=== PATIENT | female | born 1940 | race Two or more races ===

== ENCOUNTER 2025-01-12 16:03 | Inpatient (IN) | payer MEDICARE, MEDICAID ==
[~2025-01-12] VITALS: Ht 152.4 cm; Wt 81.6 kg
[~2025-01-12 16:03] MED LIST: ASPI-1450 PO; ATOR40TA71 PO; CLOP75TA83 PO; FLUD.1 PO; GABA-1181 PO; INSU3INS3 SQ; METF-446 PO; SIMV-46 PO
[2025-01-12] MEDS: SODIUM CHLORIDE 0.9% 500 ML IV ONE (17:28)
[2025-01-12 17:41] LABS: PLATELET COUNT (AUTO) 225 K/uL (150-450); RED BLOOD CELL COUNT(AUTO) 3.98 MIL/uL (4.00-5.20); RED CELL DISTRIBUTION WIDTH 15.4 % (11.5-14.5); WHITE BLOOD COUNT (AUTO) 6.0 K/uL (4.5-11.0)
[2025-01-12 17:43] LABS: APPEARANCE,URINE CLEAR (CLEAR); GLUCOSE, URINE (UA) NEGATIVE (NEGATIVE); LEUKOCYTE ESTERASE ,URINE MODERATE (NEGATIVE); NITRATE,URINE POSITIVE (NEGATIVE); OCCULT BLOOD,URINE NEGATIVE (NEGATIVE); SPECIFIC GRAVITIY, URINE 1.007 (1.003-1.030)
[2025-01-12 17:44] LABS: CALCIUM, TOTAL 9.0 mg/dL (8.8-10.5); CREATININE 0.85 mg/dL (0.60-1.30); GLOMERULAR FILTR. RATE CALC > 60 mL/min (>60); GLUCOSE,RANDOM 87 mg/dL (70-110); SODIUM SERUM 144 mmol/L (136-145); UREA NITROGEN, BLOOD 12 mg/dL (7-18)
[2025-01-12 17:53] LABS: TROPONIN I-HIGH SENSITIVITY 10 ng/L (<51)
[2025-01-12 18:03] LABS: LACTIC ACID 2.9 mmol/L (0.4-2.0)
[2025-01-12 18:05] LABS: SQUAMOUS EPITHELIAL CELL,UR Few /LPF (None Seen)
[2025-01-12] MEDS: CefTRIAXone 1 GM/DEXTROSE 50 ML IV ONE (18:40)
[2025-01-12] MEDS ORDERED: MORPHINE SULFATE 2 MG/ML SYRINGE IVP PRN (18:45)
[2025-01-12] MEDS: CefTRIAXone 1 GM/DEXTROSE 50 ML IV SCH (18:45)
[2025-01-12] MEDS ORDERED: BISACODYL 10 MG RECTAL RECTAL SUPPOSITORY PR PRN (18:45)
[2025-01-12] MEDS ORDERED: MAGNESIUM HYDROXIDE SUSPENSION 30 ML UDCUP PO PRN (18:45)
[2025-01-12] MEDS: SODIUM CHLORIDE 0.9% 1,000 ML IV ONE (19:41)
[2025-01-12] MEDS: SIMVASTATIN 40 MG TABLET PO SCH (20:37)
[2025-01-12] MEDS: ATORVASTATIN CALCIUM 40 MG TABLET PO SCH (20:37)
[2025-01-12] MEDS: DOCUSATE SODIUM 100 MG CAPSULE PO SCH (20:37)
[2025-01-12] MEDS: FLUDROCORTISONE ACETATE 0.1 MG TABLET PO SCH (20:37)
[2025-01-12 22:40] VITALS: BP 163/66; PULSE 68; RESP 19; TEMP 98.1; O2SAT 97
[2025-01-12 22:50] VITALS: BP 168/73; PULSE 69; RESP 19; O2SAT 97
[2025-01-12] MEDS: ONDANSETRON HCL 4 MG/2 ML VIAL IVP PRN (23:03)
[2025-01-13] VITALS (8 sets, daily range): BP systolic 121–158; BP diastolic 53–86; PULSE 66–84; RESP 18–22; TEMP 97.9–98.3; O2SAT 95–98
[2025-01-13] MEDS: HEPARIN SODIUM,PORCINE 5,000 UNITS/ML VIAL SQ SCH (00:28)
[2025-01-13] MEDS: PANTOPRAZOLE SODIUM 40 MG DR TABLET PO ONE (00:28)
[2025-01-13] MEDS: ACETAMINOPHEN 325 MG TABLET PO PRN (00:39)
[2025-01-13 07:01] LABS: PLATELET COUNT (AUTO) 209 K/uL (150-450); RED BLOOD CELL COUNT(AUTO) 3.91 MIL/uL (4.00-5.20); RED CELL DISTRIBUTION WIDTH 14.7 % (11.5-14.5); WHITE BLOOD COUNT (AUTO) 5.7 K/uL (4.5-11.0)
[2025-01-13 07:11] LABS: CALCIUM, TOTAL 8.4 mg/dL (8.8-10.5); CREATININE 0.70 mg/dL (0.60-1.30); GLOMERULAR FILTR. RATE CALC > 60 mL/min (>60); GLUCOSE,RANDOM 102 mg/dL (70-110); SODIUM SERUM 145 mmol/L (136-145); UREA NITROGEN, BLOOD 8 mg/dL (7-18)
[2025-01-13] MEDS: ASPIRIN 81 MG CHEWABLE TABLET PO SCH (08:44)
[2025-01-13] MEDS: CLOPIDOGREL BISULFATE 75 MG TABLET PO SCH (08:44)
[2025-01-13 08:45] LABS: GLUCOMETER DEV NAME(LOC) 5N.1D; GLUCOSE,POINT OF CARE 129 MG/DL (70-110)
[2025-01-13] MEDS: PANTOPRAZOLE SODIUM 40 MG DR TABLET PO SCH (08:45)
[2025-01-13] MEDS: POTASSIUM CHLORIDE 20 MEQ ER TABLET PO ONE (10:46)
[2025-01-13] MEDS: HYDROCODONE/ACETAMINOPHEN 5-325 MG TABLET PO PRN (10:46)
[2025-01-13] MEDS ORDERED: SODIUM CHLORIDE 0.9% 250 ML IV ONE (15:45)
[2025-01-13] MEDS: CefTRIAXone 1 GM/DEXTROSE 50 ML IV SCH (22:52)
[2025-01-14] VITALS (8 sets, daily range): BP systolic 133–159; BP diastolic 71–84; PULSE 70–90; RESP 16–21; TEMP 97.5–100.2; O2SAT 94–98
[2025-01-14] MEDS: LORazepam 2 MG/ML VIAL IVP PRN (12:38)
[2025-01-14] MEDS ORDERED: *CLINICAL-MEROPENEM DOSING CLINICAL ONE (14:00)
[2025-01-14 14:04] LABS: PLATELET COUNT (AUTO) 217 K/uL (150-450); RED BLOOD CELL COUNT(AUTO) 3.65 MIL/uL (4.00-5.20); RED CELL DISTRIBUTION WIDTH 14.8 % (11.5-14.5); WHITE BLOOD COUNT (AUTO) 6.7 K/uL (4.5-11.0)
[2025-01-14 14:12] LABS: CALCIUM, TOTAL 8.2 mg/dL (8.8-10.5); CREATININE 0.76 mg/dL (0.60-1.30); GLOMERULAR FILTR. RATE CALC > 60 mL/min (>60); GLUCOSE,RANDOM 150 mg/dL (70-110); SODIUM SERUM 143 mmol/L (136-145); UREA NITROGEN, BLOOD 12 mg/dL (7-18)
[2025-01-14] MEDS: MEROPENEM 1 GM in SODIUM CHLORIDE 0.9% 50 ML IV SCH (15:25)
[2025-01-14] MEDS: ZOLPIDEM TARTRATE 5 MG TABLET PO PRN (23:27)
[2025-01-15 07:51] VITALS: BP 147/80; PULSE 68; RESP 18; TEMP 97.7; O2SAT 96
[2025-01-15 11:57] VITALS: BP 154/98; PULSE 85; RESP 18; TEMP 97.9; O2SAT 98
[2025-01-15 16:11] VITALS: BP 167/114; PULSE 80; RESP 18; TEMP 97.7; O2SAT 98
[2025-01-15 20:45] VITALS: BP 142/73; PULSE 91; RESP 19; TEMP 97.5; O2SAT 97
[2025-01-16 00:04] VITALS: BP 114/73; PULSE 78; RESP 18; TEMP 98.4; O2SAT 96
[2025-01-16 03:40] VITALS: BP 135/71; PULSE 76; RESP 19; TEMP 97.9; O2SAT 95
[2025-01-16 07:38] VITALS: BP 156/66; PULSE 67; RESP 18; TEMP 97.8; O2SAT 96
[2025-01-16 08:49] LABS: PLATELET COUNT (AUTO) 206 K/uL (150-450); RED BLOOD CELL COUNT(AUTO) 3.67 MIL/uL (4.00-5.20); RED CELL DISTRIBUTION WIDTH 14.8 % (11.5-14.5); WHITE BLOOD COUNT (AUTO) 5.4 K/uL (4.5-11.0)
[2025-01-16 08:52] LABS: CALCIUM, TOTAL 8.3 mg/dL (8.8-10.5); CREATININE 0.78 mg/dL (0.60-1.30); GLOMERULAR FILTR. RATE CALC > 60 mL/min (>60); GLUCOSE,RANDOM 121 mg/dL (70-110); SODIUM SERUM 143 mmol/L (136-145); UREA NITROGEN, BLOOD 15 mg/dL (7-18)
[2025-01-16] MEDS: POTASSIUM CHLORIDE 10% 40 MEQ/30 ML LIQUID UDCUP PO ONE (15:46)
[2025-01-16 15:59] VITALS: BP 163/78; PULSE 79; RESP 18; TEMP 98; O2SAT 97
[2025-01-16 19:51] VITALS: BP 142/68; PULSE 85; RESP 19; TEMP 99; O2SAT 96
[2025-01-17] VITALS (7 sets, daily range): BP systolic 144–150; BP diastolic 62–82; PULSE 65–78; RESP 17–20; TEMP 97.3–98.6; O2SAT 94–97
[2025-01-17 06:14] LABS: PLATELET COUNT (AUTO) 199 K/uL (150-450); RED BLOOD CELL COUNT(AUTO) 3.89 MIL/uL (4.00-5.20); RED CELL DISTRIBUTION WIDTH 15.1 % (11.5-14.5); WHITE BLOOD COUNT (AUTO) 5.1 K/uL (4.5-11.0)
[2025-01-17 06:19] LABS: CALCIUM, TOTAL 8.5 mg/dL (8.8-10.5); CREATININE 0.63 mg/dL (0.60-1.30); GLOMERULAR FILTR. RATE CALC > 60 mL/min (>60); GLUCOSE,RANDOM 126 mg/dL (70-110); SODIUM SERUM 144 mmol/L (136-145); UREA NITROGEN, BLOOD 15 mg/dL (7-18)
[2025-01-17] MEDS: POTASSIUM CHL 10 MEQ/WATER 50 ML IV PRN (15:06)
[2025-01-17] MEDS: POTASSIUM CHLORIDE 20 MEQ ER TABLET PO PRN (20:29)
[2025-01-18 03:47] VITALS: BP 143/69; PULSE 65; RESP 17; TEMP 97.5; O2SAT 96
[2025-01-18 06:11] LABS: PLATELET COUNT (AUTO) 199 K/uL (150-450); RED BLOOD CELL COUNT(AUTO) 3.84 MIL/uL (4.00-5.20); RED CELL DISTRIBUTION WIDTH 14.8 % (11.5-14.5); WHITE BLOOD COUNT (AUTO) 4.5 K/uL (4.5-11.0)
[2025-01-18 06:21] LABS: CALCIUM, TOTAL 8.4 mg/dL (8.8-10.5); CREATININE 0.65 mg/dL (0.60-1.30); GLOMERULAR FILTR. RATE CALC > 60 mL/min (>60); GLUCOSE,RANDOM 132 mg/dL (70-110); SODIUM SERUM 140 mmol/L (136-145); UREA NITROGEN, BLOOD 14 mg/dL (7-18)
[2025-01-18 08:45] VITALS: BP 155/64; PULSE 79; RESP 17; TEMP 97.9; O2SAT 96
[2025-01-18] MEDS ORDERED: FOSF3PAC4 PO (08:59)
== END 2025-01-18 11:46 | disposition hospice, home (50) | DRG 74 ==
LOC: EMS 16:03 → EDH 18:30 → 5S 21:35
PROVIDERS: ADMIT Internal Medicine; ATTEND Internal Medicine
DX: G90.89 Other disorders of autonomic nervous system (principal); N39.0 Urinary tract infection, site not specified; E87.20 Acidosis, unspecified; E86.0 Dehydration; E11.9 Type 2 diabetes mellitus without complications; E78.5 Hyperlipidemia, unspecified; R53.81 Other malaise; R41.89 Other symptoms and signs involving cognitive functions and awareness; R62.7 Adult failure to thrive; F91.9 Conduct disorder, unspecified; R07.89 Other chest pain; Z87.440 Personal history of urinary (tract) infections; Z88.2 Allergy status to sulfonamides
CPT/HCPCS: 71045; 80048; 81001; 82962; 83605; 83690; 83880; 84132; 84484; 85025; 87040; 87077; 87081; 87086; 87186; 92610; 93005; 96361; 96365; 97163; 97530; 99285; J0360; J0696; J1644; J2060; J2185; J2405; J3480; J7030; J7040; J7050; 36415-L1; 36415-TC